=== PATIENT | female | born 1965 | race Two or more races ===

== ENCOUNTER 2021-04-01 09:40 | Outpatient (CLI) | payer OTHER | END 2021-04-01 09:48 | disposition home or self-care (01) | LOC: NUCLEAR 09:40 | PROVIDERS: ATTEND Internal Medicine Cardiovascular Disease | DX: R00.2 Palpitations (principal); I25.10 Atherosclerotic heart disease of native coronary artery without angina pectoris ==

== ENCOUNTER 2021-06-07 16:38 | Emergency (ER) | payer OTHER ==
[~2021-06-07] VITALS: Ht 157.5 cm; Wt 87.5 kg
[2021-06-07] MEDS ORDERED: OSTERA TABLET1 EACH (17:19)
[2021-06-07] MEDS ORDERED: SYNTHROID75 MCG (17:19)
[2021-06-07] MEDS ORDERED: INDAPAMIDE2.5 MG (17:19)
== END 2021-06-07 19:59 | disposition home or self-care (01) ==
LOC: ER 16:38
DX: L60.0 Ingrowing nail (principal)

== ENCOUNTER 2022-04-04 10:13 | Emergency (ER) | payer OTHER ==
[~2022-04-04] VITALS: Ht 157.5 cm; Wt 83.5 kg
[~2022-04-04 10:13] MED LIST: INDAPAMIDE2.5 MG; OSTERA TABLET1 EACH; SYNTHROID75 MCG
[2022-04-04] MEDS ORDERED: ALL DAY ALLERGY10 M3 PO (10:27)
[2022-04-04] MEDS ORDERED: ATORVASTATIN CA40 MG PO (10:27)
[2022-04-04] MEDS ORDERED: ADULT LOW DOSE81 M1 PO (10:27)
[2022-04-04] MEDS ORDERED: PAXLOVID 150-11 EACH (10:31)
[2022-04-04] MEDS ORDERED: MUCINEX FAST-M180 M2 PO (15:27)
[2022-04-04] MEDS ORDERED: BENZONATATE200 M1 PO (15:27)
== END 2022-04-04 15:32 | disposition home or self-care (01) ==
LOC: ER 10:13
DX: B34.9 Viral infection, unspecified (principal); U07.1 COVID-19; E11.9 Type 2 diabetes mellitus without complications

== ENCOUNTER 2022-08-27 15:19 | Emergency (ER) | payer OTHER ==
[~2022-08-27] VITALS: Ht 160 cm; Wt 83.5 kg
[~2022-08-27 15:19] MED LIST changes: +ADULT LOW DOSE81 M1 PO; +ALL DAY ALLERGY10 M3 PO; +ATORVASTATIN CA40 MG PO; +BENZONATATE200 M1 PO; +MUCINEX FAST-M180 M2 PO; +PAXLOVID 150-11 EACH
[2022-08-27] MEDS ORDERED: ALENDRONATE SOD70 MG PO (15:36)
[2022-08-27] MEDS ORDERED: CEFADROXIL500 MG PO (15:36)
[2022-08-27] MEDS ORDERED: BETAMETHASONE D15 GM TP (15:36)
[2022-08-27] MEDS ORDERED: SYNTHROID50 MCG PO (15:37)
[2022-08-27] MEDS ORDERED: LORATADINE10 MG PO (15:37)
[2022-08-27] MEDS ORDERED: SUPREP BOWEL P354 ML PO (15:37)
[2022-08-27] MEDS ORDERED: CETIRIZINE HCL10 MG PO (15:37)
[2022-08-27] MEDS ORDERED: INDAPAMIDE1.25 MG PO (15:37)
[2022-08-27] MEDS ORDERED: KETOCONAZOLE15 GM (15:37)
[2022-08-27] MEDS ORDERED: METFORMIN HCL500 M4 PO (15:37)
== END 2022-08-27 18:34 | disposition home or self-care (01) ==
LOC: ER 15:19
DX: R42 Dizziness and giddiness (principal)